=== PATIENT | male | born 1975 | race Caucasian/White ===

== ENCOUNTER 2018-07-20 19:27 | Inpatient (IN) | payer OTHER, MEDICAID ==
[~2018-07-20] VITALS: Ht 165.1 cm; Wt 131.2 kg
[2018-07-20] MEDS ORDERED: SODIUM CHLORIDE 0.9% 1,000 ML IV ONE (20:29)
[2018-07-20 21:00] LABS: CHLORIDE 94 mEq/L (98-107)
[2018-07-20] MEDS ORDERED: INSULIN REGULAR (DRIP) 100 UNITS in SODIUM CHLORIDE 0.9% 100 ML IV ONE (21:00)
[2018-07-20] MEDS ORDERED: ASPIRIN 81MG TABLET PO ONE (21:00)
[2018-07-20 21:02] LABS: PARTIAL THROMBOPLASTIN TIME 30.8 sec (23.4-31.0); PROTHROMBIN TIME 10.3 sec (9.6-11.0)
[2018-07-20 21:05] LABS: BASOPHILS % 0.8 % (0.0-2.0); EOSINOPHILS % 3.6 % (0.0-5.0); ETHANOL BLOOD < 10 mg/dL; HEMATOCRIT. 44.3 % (42.0-52.0); HEMOGLOBIN. 15.3 g/dL (14.0-18.0); LYMPHOCYTES % 31.4 % (20.0-50.0); MEAN CORPUSCULAR HEMOGLOBIN 30.7 pg (28.0-32.0); MEAN CORPUSCULAR VOLUME 88.8 fL (80.0-94.0); MEAN PLATELET VOLUME 9.5 fl (7.4-10.4); MONOCYTES % 6.8 % (2.0-8.0); NEUTROPHILS % 57.4 % (40.0-76.0); PLATELET 223 x1000/uL (130-400); RED BLOOD CELL COUNT 4.99 mill/uL (4.7-6.1); RED CELL DISTRIBUTION WIDTH 12.9 % (11.6-14.6)
[2018-07-20 21:09] LABS: BG BASE EXCESS -0.9 mmol/L (-2.0-2.0); BG CARBOXYHEMOGLOBIN 0.8 % (0.5-1.5); BG DEOXYHEMOGLOBIN 6.1 % (0.0-5.0); BG FRACTION INSPIRED OXYGEN 21; BG HCO3 ACT 23.4 mmol/L (22.0-26.0); BG METHEMOGLOBIN 0.1 % (0.0-1.5); BG OXYGEN SATURATION 93.8 % (92.0-98.5); BG PCO2 37.8 mmHg (35.0-45.0); BG PH 7.409 (7.350-7.450); BG PO2 74.2 mmHg (75.0-100.0); BG SAMPLE SITE RIGHT RADIAL; BG TOTAL HEMOGLOBIN 15.5 g/dL (12.0-18.0); BG VENT MODE ROOM AIR
[2018-07-20 21:09] LABS: BETA HYDROXYBUTYRATE 0.1 mMol/L (0.0-0.3)
[2018-07-20] MEDS ORDERED: INSULIN REGULAR (HUMULIN R) 300UNITS/3ML IV ONE (21:15)
[2018-07-20 21:40] LABS: PHOSPHORUS 3.2 mg/dL (2.5-4.9)
[2018-07-20] MEDS ORDERED: INSULIN GLARGINE UD 100 UNITS/ML SYR SUBCUT SCH (22:15)
[2018-07-20] MEDS ORDERED: ONDANSETRON HCL 4MG/2ML INJ IV PRN (22:15)
[2018-07-20] MEDS ORDERED: ACETAMINOPHEN 325MG TABLET PO PRN (22:15)
[2018-07-20] MEDS ORDERED: DEXTROSE 50% WATER 50ML SYRINGE IV PRN (22:15)
[2018-07-20] MEDS ORDERED: NITROGLYCERIN 0.4MG TABLET SL SL PRN (22:15)
[2018-07-20] MEDS ORDERED: DOCUSATE SODIUM 100MG CAPSULE PO PRN (22:15)
[2018-07-20] MEDS ORDERED: MAGNESIUM/ALUMINUM HYDROXIDE/SIMETHICONE 30ML UDC PO PRN (22:15)
[2018-07-20] MEDS ORDERED: LORAZEPAM 0.5MG TABLET PO PRN (22:15)
[2018-07-20] MEDS ORDERED: CLONIDINE 0.1MG TABLET PO PRN (22:15)
[2018-07-20] MEDS ORDERED: KETOROLAC 15MG/ML VIAL IV PRN (23:37)
[2018-07-20] MEDS ORDERED: ZOLPIDEM TARTRATE 5MG TABLET PO PRN (23:38)
[2018-07-20 23:50] VITALS: BP 133/97
[2018-07-21] MEDS ORDERED: SODIUM CHLORIDE 0.9% 1,000 ML IV SCH (01:00)
[2018-07-21] MEDS ORDERED: INSULIN GLARGINE UD 100 UNITS/ML SYR SUBCUT SCH (03:00)
[2018-07-21] MEDS ORDERED: BLOOD SUGAR DIAGNOSTIC STRIP TEST SCH (07:40)
[2018-07-21] MEDS ORDERED: INSULIN LISPRO 100 UNITS/ML SUBCUT SCH ×2 (07:40→08:10)
[2018-07-21 08:00] VITALS: BP 107/69
[2018-07-21 08:35] LABS: BASOPHILS % 0.9 % (0.0-2.0); EOSINOPHILS % 3.8 % (0.0-5.0); HEMOGLOBIN. 14.6 g/dL (14.0-18.0); LYMPHOCYTES % 30.1 % (20.0-50.0); MEAN CORPUSCULAR HEMOGLOBIN 30.2 pg (28.0-32.0); MEAN CORPUSCULAR VOLUME 87.2 fL (80.0-94.0); MEAN PLATELET VOLUME 9.3 fl (7.4-10.4); MONOCYTES % 6.6 % (2.0-8.0); NEUTROPHILS % 58.6 % (40.0-76.0); PLATELET 211 x1000/uL (130-400); RED BLOOD CELL COUNT 4.82 mill/uL (4.7-6.1); RED CELL DISTRIBUTION WIDTH 13.1 % (11.6-14.6)
[2018-07-21] MEDS ORDERED: ASPIRIN 325MG EC TABLET PO SCH (09:00)
[2018-07-21] MEDS ORDERED: LISINOPRIL 20MG TABLET PO SCH (09:00)
[2018-07-21] MEDS ORDERED: FAMOTIDINE 20MG TABLET PO SCH (09:00)
[2018-07-21] MEDS ORDERED: ENOXAPARIN 30MG/0.3ML SYR SUBCUT SCH (09:00)
[2018-07-21 09:09] LABS: CHLORIDE 103 mEq/L (98-107)
[2018-07-21 09:25] LABS: CREATINE KINASE 195 IU/L (39-308)
[2018-07-21 09:26] LABS: CREATINE KINASE MB FRACTION 1.3 ng/mL (0.5-3.6)
[2018-07-21 11:41] VITALS: BP 107/69
[2018-07-21] MEDS ORDERED: LISI10TA5 MT (11:51)
[2018-07-21] MEDS ORDERED: INSU100I28 SQ (11:51)
[2018-07-21] MEDS ORDERED: INSLIS SUBCUT (11:52)
== END 2018-07-21 13:30 | disposition home or self-care (01) | DRG 816 ==
LOC: ER 21:45 → 7WST 21:50 → ENRESERV 22:38
PROVIDERS: ADMIT Internal Medicine; ATTEND Internal Medicine
DX: T40.5X1A Poisoning by cocaine, accidental (unintentional), initial encounter (principal); E11.00 Type 2 diabetes mellitus with hyperosmolarity without nonketotic hyperglycemic-hyperosmolar coma (NKHHC); K76.0 Fatty (change of) liver, not elsewhere classified; E87.1 Hypo-osmolality and hyponatremia; F14.10 Cocaine abuse, uncomplicated; J45.909 Unspecified asthma, uncomplicated; I73.9 Peripheral vascular disease, unspecified; Y92.89 Other specified places as the place of occurrence of the external cause; Z98.52 Vasectomy status
CPT/HCPCS: 36415; 36600; 71045; 80061; 80320; 82010; 82375; 82550; 82553; 82805; 82962; 83036; 83735; 83880; 83930; 83935; 84100; 84484; 93005; 96361; 96374; 99285; J1650; J1815; J7030; J7050; G0480